=== PATIENT | male | born 1980 | race Caucasian/White ===

== ENCOUNTER 2017-12-19 14:19 | Emergency (ER) | payer OTHER ==
[2017-12-19 14:33] VITALS: BP 144/86
--- NOTE | 2017-12-19 14:38 | ED Physician Documentation ---
General Adult - HISTORIAN Historian: patient - HPI Stated Complaint: Bilateral Thigh Pain Chief Complaint: Low Back Pain/ Injury Additional Information: 37yo white male who has a history of L3,4,5 dsic disease. Over the last several days has had gradually increaseing pain in the groin area bialterally. No swelling in the groin area. No history of hernia in the past. If he lays still the pain subsides but is worse with movement, especially flexing hip up. Timing: still present - ROS CONST: no problems - PAST HX Past History: none, other (opiate dependency, chronic low back pain) Other History: none Surgeries/Procedures: none Allergies/Adverse Reactions: Allergies Allergy/AdvReac Type Severity Reaction Status Date / Time No Known Allergies Allergy Verified 12/19/17 14:33 Home Medications: Ambulatory Orders Medication Instructions Recorded Diazepam [Valium] 5 mg PO TID 12/19/17 - SOCIAL HX Smoking History: greater than 1 pack/day Alcohol Use: none Drug Use: marijuana - FAMILY HX Family History: No - VITAL SIGNS Vital Signs: Vital Signs Temp Pulse Resp BP Pulse Ox 97.1 F L 88 18 144/86 98 12/19/17 14:20 12/19/17 14:20 12/19/17 14:20 12/19/17 14:20 12/19/17 14:20 - REVIEWED ASSESSMENTS Nursing Assessment Reviewed: Yes Vitals Reviewed: Yes General Adult Physical Exam - PHYSICAL EXAM GENERAL APPEARANCE: moderate distress NECK: normal inspection RESPIRATORY: no resp distress, chest non-tender, breath sounds normal. No: wheezes, rales, rhonchi CVS: reg rate & rhythm, heart sounds normal, equal pulses ABDOMEN: soft, no organomegaly, normal bowel sounds, other (: normal circ male , testis decended bialt and nontender. Inguinal canal normal) BACK: normal inspection, no CVA tenderness SKIN: warm/dry, normal color EXTREMITIES: other (pain in the groin area bilat L>R with flexion of the hip, minimal pain with passive ROM, no bony or soft tissue abnl palpable. ) NEURO: oriented X3, mood/affect nml, cognition normal Discharge Clincal Impression: Muscle spasm Referrals: Primary Doctor,No [Primary Care Provider] - 2 Days Additional Instructions: Alternate cool/warm compress every 2-3 hours as needed. Continue taking Ibuprofen as prescribed. Start Flexoril 10mg one TID PRN muscle spasm/pain. If continue to have problems to return to the ED or see Dr Watkins on Thursday. Condition: Stable Disposition: 01 HOME, SELF-CARE Decision to Admit: NO Date of Decison to Admit: 12/19/17 Decision Time: 14:59
== END 2017-12-19 15:08 | disposition home or self-care (01) ==
LOC: ED 14:19
DX: M62.838 Other muscle spasm (principal)
CPT/HCPCS: 99282